=== PATIENT | female | born 1995 | race Caucasian/White ===

== ENCOUNTER 2018-07-07 20:39 | Emergency (ER) | payer OTHER, SELFPAY ==
[~2018-07-07] VITALS: Ht 162.6 cm; Wt 55.0 kg
[2018-07-07 20:48] VITALS: BP 133/90
[2018-07-07] MEDS ORDERED: ESCI10TA10 PO (21:08)
[2018-07-07] MEDS ORDERED: VALCYCLOVIR (21:08)
== END 2018-07-07 21:35 | disposition home or self-care (01) ==
LOC: ED 21:00
DX: L02.414 Cutaneous abscess of left upper limb (principal)
CPT/HCPCS: 99283